=== PATIENT | male | born 1960 | race Caucasian/White ===

== ENCOUNTER 2020-10-28 06:26 | Day surgery (SDC) | payer MEDICAID ==
[2020-10-28] MEDS ORDERED: Sodium Chloride 0.9% 1,000 ML IV SCH (06:30)
[2020-10-28] MEDS ORDERED: fentaNYL 100 MCG/2 ML SDV ONE (07:28)
[2020-10-28] MEDS ORDERED: Propofol 200 MG/20 ML SDV ONE ×2 (07:28→07:56)
[2020-10-28] MEDS ORDERED: Midazolam 1 MG/ML 2 ML SDV ONE (07:29)
--- NOTE | 2020-10-28 08:53 | OR ---
DATE OF PROCEDURE: 10/28/2020 SURGEON: Cory Herrera MD PROCEDURE: Colonoscopy. FINDINGS: 1. Ascending colon polyp, approximately 5 mm, completely removed using cold biopsy forceps. 2. Ascending colon polyp #2, approximately 5 mm, completely removed using cold biopsy forceps. 3. Descending colon polyp #1, completely removed using endoscopic mucosal resection techniques. 4. Tortuous sigmoid colon. 5. Diverticulosis without evidence of diverticulitis or bleeding, heavy, throughout entire colon. COMPLICATION: None. FINAL CLEANER: None. ANESTHESIA: MAC. PREOPERATIVE DIAGNOSIS: Screening colonoscopy. POSTOPERATIVE DIAGNOSIS: Screening colonoscopy. RISKS: Risks, benefits, alternatives, and limitations including, but not limited to infection, bleeding, perforation, false positives, false negatives were explained to the patient and he wished to proceed. PROCEDURE IN DETAIL: The patient was placed in left lateral decubitus position. Digital rectal exam was performed without abnormality. Scope was introduced and advanced atraumatically to the ileocecal valve. A photo was taken of the appendiceal orifice. Scope was brought back to the ascending, transverse, descending colon, and retroflexed. The aforementioned polyps were identified and completely removed. With respect to EMR, this was performed in a standard technique including elevation of all 4 quadrants with Kavya Ink. No abnormal bleeding was noted after removal of any of these polyps. The patient did have a tortuous sigmoid colon. He did have densely concentrated diverticulosis throughout the entire colon. No abnormalities on retroflexion. Greater than 8 minutes was spent removing the scope. The prep was acceptable, approximately 90% of the luminal surface could be seen. Cory Herrera MD /[id number]
[2020-10-28 08:54] VITALS: BP 119/79; PULSE 63
== END 2020-10-28 09:00 | disposition home or self-care (01) ==
LOC: JP.SDS 06:26
PROVIDERS: ATTEND Surgery
DX: Z12.11 Encounter for screening for malignant neoplasm of colon (principal); D12.2 Benign neoplasm of ascending colon; D12.4 Benign neoplasm of descending colon; K57.30 Diverticulosis of large intestine without perforation or abscess without bleeding
CPT/HCPCS: 88305; J2250; J2704; J3010; J7030

== ENCOUNTER 2024-06-04 07:09 | Day surgery (SDC) | payer MEDICARE, OTHER ==
[2024-06-04] MEDS ORDERED: Propofol 200 MG/20 ML SDV ONE (07:20)
[2024-06-04] MEDS ORDERED: Midazolam 1 MG/ML 2 ML SDV ONE (07:20)
[2024-06-04] MEDS ORDERED: fentaNYL 50 MCG/ML SDV ONE (07:20)
[2024-06-04] MEDS: Lactated Ringers 1,000 ML IV SCH (08:11)
[2024-06-04 10:25] VITALS: BP 119/66; PULSE 51
== END 2024-06-04 10:30 | disposition home or self-care (01) ==
LOC: JP.SDS 07:09
PROVIDERS: ATTEND Surgery
DX: Z12.11 Encounter for screening for malignant neoplasm of colon (principal); D12.3 Benign neoplasm of transverse colon; D12.4 Benign neoplasm of descending colon; K57.30 Diverticulosis of large intestine without perforation or abscess without bleeding
CPT/HCPCS: 00811; 45385; 88305; J2250; J2704; J3010; J7120